=== PATIENT | male | born 1935 | race Caucasian/White ===

== ENCOUNTER 2017-03-15 10:44 | Emergency (ER) | payer OTHER, BC ==
[~2017-03-15] VITALS: Ht 177.8 cm; Wt 65.1 kg
[~2017-03-15 10:44] MED LIST: ADULT LOW DOSE81 M1 PO; AGGRENOX1 CAPSULE PO; ALEVE220 M2 PO; ALPRAZOLAM0.25 M2 PO; ASPIR 8181 M1 PO; ATORVASTATIN CA20 MG PO; BISAC-EVAC10 MG PR; BUSPIRONE HCL5 MG PO; CIPRO500 MG PO; ENEMA133 M2 PR; EXELON PATCH9.5 MG TD; FETZIMA40 MG PO; FOLIC ACID1 MG PO; GENERLAC10 GM/15 M PO; HYDROCODON-ACE1 EAC7 PO; KEFLEX500 MG PO; KLOR-CON 1010 ME1 PO; LINZESS145 MCG PO; Lopressor PO; MACROBID100 MG PO; MEGACE ES625 MG/5 M PO; METOPROLOL TART25 MG PO; METOPROLOL TART50 MG PO; MILK OF MAGN PO; MOBIC7.5 MG PO; MYRBETRIQ25 MG PO; MYRBETRIQ50 MG PO; NAMENDA XR28 MG PO; PAIN & FEVER325 MG PO; POTASSIUM CHLO10 ME3 PO; Protonix PO; QUINAPRIL HCL10 MG PO; QUINAPRIL HCL20 MG PO; SERTRALINE HCL25 MG PO; SIMVASTATIN40 MG PO; STOOL SOFTENER100 MG PO; TAMSULOSIN HCL0.4 MG PO; TORSEMIDE20 MG PO; TYLENOL REGULA325 MG PO; ZOCOR20 MG PO; ZOCOR40 MG PO
[2017-03-15 11:53] LABS: EOSINOPHIL (%) 1.1 % (0-5); EOSINOPHIL COUNT 0.1 K/uL (0-0.3); HEMATOCRIT 46.7 % (38.0-50.0); IMMATURE GRANULOCYTE (%) 0.5 % (0.0-0.7); INSTRUMENT ABS NEUTROPHIL CT 4.9 K/uL; LYMPHOCYTE COUNT 0.8 K/uL (1.0-2.8); MCH 31.4 PG (29.0-34.0); MCHC 32.5 G/DL (30.0-36.0); MCV 96.5 FL (86-99); MEAN PLAT.VOLUME 10.4 uM^3 (9.0-12.4); MONOCYTE (%) 10.2 % (3-12); MONOCYTE COUNT 0.7 K/uL (0-0.8); NEUTROPHIL (%) 74.9 % (45-76); NEUTROPHIL COUNT 4.9 K/uL (1.8-6.4); PLATELET COUNT 213 K/uL (156-360); RBC DIS.WIDTH-CV 13.1 % (11.8-14.6); RBC DIS.WIDTH-SD 46.5 % (39-53); RED BLOOD COUNT 4.84 M/uL (4.00-5.50); WHITE BLOOD COUNT 6.5 K/uL (4.1-10.2)
[2017-03-15 12:08] LABS: CHLORIDE 105 mEq/L (99-109); POTASSIUM 3.7 mEq/L (3.7-5.4); SODIUM 141 mEq/L (136-147)
[2017-03-15 12:10] LABS: GLUCOSE 133 mg/dL (70-99)
[2017-03-15 12:11] LABS: ANION GAP 6 MEQ/L (2-14)
[2017-03-15 12:12] LABS: TOTAL BILIRUBIN 0.5 mg/dL (0.0-1.0)
[2017-03-15 12:14] LABS: ALKALINE PHOSPHATASE 92 IU/L (3-129); GFR ESTIMATE (CALCULATED) 56 mL/min/
[2017-03-15 12:15] LABS: UREA NITROGEN (BUN) 20 mg/dL (9-23)
[2017-03-15 12:20] LABS: TROP-I INTERPRETATION NEGATIVE; TROPONIN-I 0.11 ng/mL (0.0-0.30)
[2017-03-15 18:42] VITALS: BP 137/84
== END 2017-03-15 18:43 ==
LOC: EME 10:44
PROVIDERS: Emergency Medicine
DX: S01.81XA Laceration without foreign body of other part of head, initial encounter (principal); W05.0XXA Fall from non-moving wheelchair, initial encounter; Y92.129 Unspecified place in nursing home as the place of occurrence of the external cause; Y99.8 Other external cause status; F03.90 Unspecified dementia, unspecified severity, without behavioral disturbance, psychotic disturbance, mood disturbance, and anxiety; I10 Essential (primary) hypertension; E78.5 Hyperlipidemia, unspecified; I44.4 Left anterior fascicular block; Z86.73 Personal history of transient ischemic attack (TIA), and cerebral infarction without residual deficits; F32.9 Major depressive disorder, single episode, unspecified; Z87.891 Personal history of nicotine dependence; Z23 Encounter for immunization
CPT/HCPCS: 70450; 71010; 72125; 80053; 84484; 85025; 93005; 99281; 99285